=== PATIENT | male | born 1945 | race Two or more races ===

== ENCOUNTER → 2018-09-12 | Outpatient (CLI) | payer MEDICARE, BC ==
--- NOTE | 2018-09-12 18:46 | Diagnostic Imaging Report ---
EXAMINATION: CHEST 2 VIEWS INDICATION: BRONCHITIS COMPARISON: None FINDINGS: TUBES and LINES: None. 3-lead left-sided cardiac pacemaker. LUNGS: Lungs are well inflated. Patchy density in the posterior mid lung nonspecific. Mild bilateral perihilar, upper bronchial thickening. There is no evidence of pneumonia or pulmonary edema. PLEURA: No pleural effusion or pneumothorax. HEART AND MEDIASTINUM: The cardiac silhouette is mildly enlarged. Calcifications of the aortic arch. BONES AND SOFT TISSUES: No acute osseous lesion. Mediastinal wires and mediastinal clips. UPPER ABDOMEN: No free air under the diaphragm. IMPRESSION: Cardiomegaly. Mild bilateral perihilar, peribronchial thickening may reflect mild reactive airway disease or early interstitial edema. Signed by: Dr. Zaida Nova M.D. on 09/12/2018 6:42 PM
== END ==
LOC: RAD 17:05
PROVIDERS: ATTEND Family Medicine
DX: J40 Bronchitis, not specified as acute or chronic (principal)
CPT/HCPCS: 71046